=== PATIENT | male | born 1955 | race Caucasian/White ===

== ENCOUNTER 2016-11-22 10:28 | Inpatient (IN) | payer MEDICAID ==
[~2016-11-22] VITALS: Ht 162.6 cm; Wt 83.3 kg
[2016-11-22] VITALS (9 sets, daily range): BP systolic 132–162; BP diastolic 79–117
[2016-11-22] MEDS ORDERED: NITROGLYCERIN OINT 1GM/INCH UDPKT TD STA (11:23)
[2016-11-22] MEDS ORDERED: ASPIRIN 81MG TABLET PO STA (11:23)
[2016-11-22] MEDS ORDERED: ENALAPRIL 2.5MG/2ML VIAL 2ML IV ONE (11:30)
[2016-11-22] MEDS ORDERED: NITROGLYCERIN 0.4MG TABLET SL SL PRN (11:30)
[2016-11-22 11:39] LABS: BASOPHILS % 0.8 % (0.0-2.0); EOSINOPHILS % 1.4 % (0.0-5.0); HEMATOCRIT. 36.3 % (42.0-52.0); HEMOGLOBIN. 12.4 g/dL (14.0-18.0); LYMPHOCYTES % 23.7 % (20.0-50.0); MEAN CORPUSCULAR HEMOGLOBIN 30.6 pg (28.0-32.0); MEAN CORPUSCULAR VOLUME 89.4 fL (80.0-94.0); MEAN PLATELET VOLUME 8.4 fl (7.4-10.4); MONOCYTES % 11.2 % (2.0-8.0); NEUTROPHILS % 62.9 % (40.0-76.0); PLATELET 194 x1000/uL (130-400); RED BLOOD CELL COUNT 4.06 mill/uL (4.7-6.1); RED CELL DISTRIBUTION WIDTH 14.1 % (11.6-14.6)
[2016-11-22 11:46] LABS: INR 1.2; PARTIAL THROMBOPLASTIN TIME 30.2 sec (23.4-31.0)
[2016-11-22 11:54] LABS: CARBON DIOXIDE 24 mEq/L (21-32); CHLORIDE 110 mEq/L (98-107); CREATINE KINASE 227 IU/L (39-308); TROPONIN I 0.08 ng/mL (0.00-0.04)
[2016-11-22 11:55] LABS: CREATINE KINASE MB FRACTION 0.9 ng/mL (0.5-3.6)
[2016-11-22] MEDS ORDERED: FUROSEMIDE 20MG/2ML VIAL IVP ONE (12:00)
[2016-11-22] MEDS ORDERED: LEVOFLOXACIN 500MG PREMIX 100 ML IV ONE (12:00)
[2016-11-22] MEDS ORDERED: POTASSIUM CHLORIDE 20MEQ TABLET SR PO ONE (12:45)
[2016-11-22 13:21] LABS: CLARITY URINE CLEAR (CLEAR); COLOR URINE YELLOW (YELLOW); GLUCOSE URINE NEGATIVE (NEGATIVE); KETONES URINE NEGATIVE (NEGATIVE); LEUKOCYTE ESTERASE URINE NEGATIVE (NEGATIVE); NITRITE URINE NEGATIVE (NEGATIVE); OCCULT BLOOD URINE NEGATIVE (NEGATIVE); PH URINE 6.5 (4.5-8.0); PROTEIN URINE NEGATIVE (NEGATIVE); SPECIFIC GRAVITY URINE 1.011 (1.005-1.030)
[2016-11-22] MEDS ORDERED: DIPHENHYDRAMINE 50MG/ML VIAL IV PRN (15:30)
[2016-11-22] MEDS ORDERED: IPRATROPIUM/ALBUTEROL 0.5-3(2.5)MG/3ML NEB INH PRN (15:30)
[2016-11-22] MEDS ORDERED: CLONIDINE 0.1MG TABLET PO PRN (15:30)
[2016-11-22] MEDS ORDERED: MAGNESIUM/ALUMINUM HYDROXIDE/SIMETHICONE 30ML UDC PO PRN (15:30)
[2016-11-22] MEDS ORDERED: ONDANSETRON HCL 4MG/2ML VIAL IV PRN (15:30)
[2016-11-22] MEDS ORDERED: DEXTROSE 50% WATER 50ML SYRINGE IV PRN (15:30)
[2016-11-22] MEDS: AMLODIPINE 10MG TABLET PO SCH (15:42)
[2016-11-22] MEDS: BLOOD SUGAR DIAGNOSTIC STRIP TEST SCH ×2 (16:34→22:04)
[2016-11-22] MEDS: INSULIN LISPRO 100 UNITS/ML SUBCUT SCH ×2 (16:34→22:04)
[2016-11-22] MEDS ORDERED: GUAIFENESIN 200MG/10ML SUGAR FREE UDC PO PRN (20:00)
[2016-11-22] MEDS: BENAZEPRIL 20MG TABLET PO SCH (22:02)
[2016-11-22] MEDS: SODIUM CHLORIDE 0.9% INJ 3ML FLUSH IVF SCH (22:06)
[2016-11-23] VITALS (10 sets, daily range): BP systolic 103–152; BP diastolic 66–99
[2016-11-23] MEDS: ACETAMINOPHEN 325MG TABLET PO PRN ×4 (04:55→17:04)
[2016-11-23] MEDS: SODIUM CHLORIDE 0.9% INJ 3ML FLUSH IVF SCH ×3 (05:53→21:35)
[2016-11-23] MEDS: BLOOD SUGAR DIAGNOSTIC STRIP TEST SCH ×5 (05:54→21:36)
[2016-11-23 07:14] LABS: TROPONIN I 0.08 ng/mL (0.00-0.04)
[2016-11-23] MEDS: INSULIN LISPRO 100 UNITS/ML SUBCUT SCH ×4 (07:20→21:00)
[2016-11-23] MEDS ORDERED: MAGNESIUM 2 G PREMIX 50 ML IV PRN (08:00)
[2016-11-23] MEDS: AMLODIPINE 10MG TABLET PO SCH (08:39)
[2016-11-23] MEDS: BENAZEPRIL 20MG TABLET PO SCH ×2 (08:39→21:00)
[2016-11-23] MEDS: LEVOFLOXACIN 500MG PREMIX 100 ML IV SCH (13:34)
[2016-11-23] MEDS ORDERED: POTASSIUM CHLORIDE 20MEQ TABLET SR PO SCH ×2 (15:00)
[2016-11-23] MEDS ORDERED: REGADENOSON 0.4 MG/5 ML IV SCH (15:00)
[2016-11-23] MEDS: POTASSIUM CHLORIDE 20MEQ TABLET SR PO SCH (17:02)
[2016-11-23 17:12] LABS: *AMPHETAMINES SCREEN URINE NEGATIVE (NEGATIVE); *BARBITURATES SCREEN URINE NEGATIVE (NEGATIVE); *BENZODIAZEPINES SCREEN URINE NEGATIVE (NEGATIVE); *COCAINE SCREEN URINE NEGATIVE (NEGATIVE); CANNABINOID URINE SCREEN NEGATIVE (NEGATIVE); METHADONE URINE SCREEN NEGATIVE (NEGATIVE); OPIATES URINE SCREEN PRESUMTIVE POSITIVE (NEGATIVE); PHENCYCLIDINE URINE SCREEN NEGATIVE (NEGATIVE)
[2016-11-23] MEDS: IPRATROPIUM/ALBUTEROL 0.5-3(2.5)MG/3ML NEB HHN SCH (20:28)
[2016-11-23] MEDS: GUAIFENESIN 600MG ER TABLET PO SCH (21:31)
[2016-11-24] MEDS: POTASSIUM CHLORIDE 20MEQ TABLET SR PO SCH ×2 (00:04→05:24)
[2016-11-24 00:05] VITALS: BP 122/83
[2016-11-24] MEDS: IPRATROPIUM/ALBUTEROL 0.5-3(2.5)MG/3ML NEB HHN SCH ×4 (01:51→20:27)
[2016-11-24 04:00] VITALS: BP 139/79
[2016-11-24] MEDS: SODIUM CHLORIDE 0.9% INJ 3ML FLUSH IVF SCH ×3 (05:24→20:56)
[2016-11-24] MEDS: BLOOD SUGAR DIAGNOSTIC STRIP TEST SCH ×4 (06:20→20:56)
[2016-11-24 06:34] LABS: BASOPHILS % 0.5 % (0.0-2.0); EOSINOPHILS % 1.3 % (0.0-5.0); HEMOGLOBIN. 12.7 g/dL (14.0-18.0); LYMPHOCYTES % 25.5 % (20.0-50.0); MEAN CORPUSCULAR HEMOGLOBIN 30.8 pg (28.0-32.0); MEAN PLATELET VOLUME 8.9 fl (7.4-10.4); MONOCYTES % 10.4 % (2.0-8.0); NEUTROPHILS % 62.3 % (40.0-76.0); PLATELET 206 x1000/uL (130-400); RED BLOOD CELL COUNT 4.11 mill/uL (4.7-6.1); RED CELL DISTRIBUTION WIDTH 14.1 % (11.6-14.6)
[2016-11-24 06:49] LABS: CARBON DIOXIDE 21 mEq/L (21-32); CHLORIDE 108 mEq/L (98-107); CREATINE KINASE 184 IU/L (39-308); CREATINE KINASE MB FRACTION 0.9 ng/mL (0.5-3.6); HDL CHOLESTEROL 32 mg/dL (40-59); LDL CHOLESTEROL 129 mg/dL (5-100); TROPONIN I 0.07 ng/mL (0.00-0.04)
[2016-11-24] MEDS: INSULIN LISPRO 100 UNITS/ML SUBCUT SCH ×4 (07:50→20:56)
[2016-11-24 08:00] VITALS: BP 141/94
[2016-11-24] MEDS: BENAZEPRIL 20MG TABLET PO SCH ×2 (08:39→20:55)
[2016-11-24] MEDS: GUAIFENESIN 600MG ER TABLET PO SCH ×2 (08:40→20:55)
[2016-11-24] MEDS: ACETAMINOPHEN 325MG TABLET PO PRN ×2 (08:40→18:22)
[2016-11-24] MEDS: AMLODIPINE 10MG TABLET PO SCH (08:40)
[2016-11-24] MEDS ORDERED: REGADENOSON 0.4 MG/5 ML IV ONE (11:36)
[2016-11-24] MEDS ORDERED: IOHEXOL-350 100 ML BOTTLE ONE (12:01)
[2016-11-24] MEDS ORDERED: SODIUM CHLORIDE 0.9% 10ML VIAL ONE (12:01)
[2016-11-24] MEDS: LEVOFLOXACIN 500MG PREMIX 100 ML IV SCH (13:11)
[2016-11-24] MEDS ORDERED: POTASSIUM CHLORIDE 20MEQ TABLET SR PO NR (14:30)
[2016-11-24 20:51] VITALS: BP 146/99
[2016-11-25 00:15] VITALS: BP 142/95
[2016-11-25] MEDS: IPRATROPIUM/ALBUTEROL 0.5-3(2.5)MG/3ML NEB HHN SCH ×3 (02:50→13:31)
[2016-11-25 04:33] VITALS: BP 140/88
[2016-11-25] MEDS: SODIUM CHLORIDE 0.9% INJ 3ML FLUSH IVF SCH ×3 (05:12→21:31)
[2016-11-25 06:33] LABS: BASOPHILS % 0.8 % (0.0-2.0); EOSINOPHILS % 2.2 % (0.0-5.0); HEMATOCRIT. 37.2 % (42.0-52.0); HEMOGLOBIN. 12.8 g/dL (14.0-18.0); LYMPHOCYTES % 23.3 % (20.0-50.0); MEAN CORPUSCULAR HEMOGLOBIN 30.8 pg (28.0-32.0); MEAN CORPUSCULAR VOLUME 89.8 fL (80.0-94.0); MEAN PLATELET VOLUME 8.7 fl (7.4-10.4); MONOCYTES % 9.6 % (2.0-8.0); NEUTROPHILS % 64.1 % (40.0-76.0); PLATELET 213 x1000/uL (130-400); RED BLOOD CELL COUNT 4.15 mill/uL (4.7-6.1); RED CELL DISTRIBUTION WIDTH 14.6 % (11.6-14.6)
[2016-11-25 07:07] LABS: CHLORIDE 110 mEq/L (98-107)
[2016-11-25 07:18] LABS: CARBON DIOXIDE 21 mEq/L (21-32)
[2016-11-25] MEDS: BLOOD SUGAR DIAGNOSTIC STRIP TEST SCH ×4 (07:46→21:00)
[2016-11-25] MEDS: INSULIN LISPRO 100 UNITS/ML SUBCUT SCH ×5 (07:46→21:32)
[2016-11-25 07:52] VITALS: BP 131/90
[2016-11-25] MEDS: GUAIFENESIN 600MG ER TABLET PO SCH ×2 (09:39→21:31)
[2016-11-25] MEDS: BENAZEPRIL 20MG TABLET PO SCH ×2 (09:39→21:31)
[2016-11-25] MEDS: AMLODIPINE 10MG TABLET PO SCH (09:39)
[2016-11-25] MEDS ORDERED: POTASSIUM CHLORIDE 20MEQ TABLET SR PO NR (11:45)
[2016-11-25 12:09] VITALS: BP 134/85
[2016-11-25] MEDS: LEVOFLOXACIN 500MG PREMIX 100 ML IV SCH (12:39)
[2016-11-25 15:39] VITALS: BP 134/86
[2016-11-25] MEDS: FUROSEMIDE 40MG/4ML VIAL IVP SCH (16:43)
[2016-11-25] MEDS: POTASSIUM CHLORIDE 20MEQ TABLET SR PO SCH (16:43)
[2016-11-25] MEDS: LOSARTAN POTASSIUM 25 MG TABLET PO SCH (16:43)
[2016-11-25 20:44] VITALS: BP 144/88
[2016-11-25] MEDS: CARVEDILOL 6.25 MG TABLET PO SCH (21:31)
[2016-11-26 00:21] VITALS: BP 114/75
[2016-11-26 04:33] VITALS: BP 117/84
[2016-11-26] MEDS: SODIUM CHLORIDE 0.9% INJ 3ML FLUSH IVF SCH ×3 (06:00→21:24)
[2016-11-26] MEDS: BLOOD SUGAR DIAGNOSTIC STRIP TEST SCH ×4 (06:29→21:00)
[2016-11-26] MEDS: INSULIN LISPRO 100 UNITS/ML SUBCUT SCH ×4 (07:35→21:00)
[2016-11-26 07:36] VITALS: BP 135/85
[2016-11-26 08:13] LABS: EOSINOPHILS % 2.1 % (0.0-5.0); HEMATOCRIT. 40.6 % (42.0-52.0); HEMOGLOBIN. 13.8 g/dL (14.0-18.0); LYMPHOCYTES % 22.4 % (20.0-50.0); MEAN CORPUSCULAR HEMOGLOBIN 30.7 pg (28.0-32.0); MEAN CORPUSCULAR VOLUME 90.3 fL (80.0-94.0); MEAN PLATELET VOLUME 8.9 fl (7.4-10.4); MONOCYTES % 10.7 % (2.0-8.0); NEUTROPHILS % 63.8 % (40.0-76.0); PLATELET 232 x1000/uL (130-400); RED CELL DISTRIBUTION WIDTH 14.4 % (11.6-14.6)
[2016-11-26 08:33] LABS: CARBON DIOXIDE 25 mEq/L (21-32); CHLORIDE 109 mEq/L (98-107)
[2016-11-26] MEDS: ACETAMINOPHEN 325MG TABLET PO PRN ×2 (08:48→16:37)
[2016-11-26] MEDS: GUAIFENESIN 600MG ER TABLET PO SCH ×2 (08:48→21:24)
[2016-11-26] MEDS: POTASSIUM CHLORIDE 20MEQ TABLET SR PO SCH (08:48)
[2016-11-26] MEDS: CARVEDILOL 6.25 MG TABLET PO SCH ×2 (08:49→21:24)
[2016-11-26] MEDS: LOSARTAN POTASSIUM 25 MG TABLET PO SCH (08:49)
[2016-11-26] MEDS: FUROSEMIDE 40MG/4ML VIAL IVP SCH ×2 (08:50→18:20)
[2016-11-26] MEDS: AMLODIPINE 10MG TABLET PO SCH (08:50)
[2016-11-26] MEDS: BENAZEPRIL 20MG TABLET PO SCH ×2 (08:50→21:00)
[2016-11-26] MEDS: LEVOFLOXACIN 500MG TABLET PO SCH (11:48)
[2016-11-26 12:00] VITALS: BP 117/72
[2016-11-26 16:00] VITALS: BP 120/82
[2016-11-26 20:13] VITALS: BP 104/60
[2016-11-27] VITALS (8 sets, daily range): BP systolic 104–119; BP diastolic 69–79
[2016-11-27] MEDS: SODIUM CHLORIDE 0.9% INJ 3ML FLUSH IVF SCH ×3 (06:00→21:22)
[2016-11-27] MEDS: BLOOD SUGAR DIAGNOSTIC STRIP TEST SCH ×4 (06:29→20:51)
[2016-11-27 06:48] LABS: EOSINOPHILS % 2.9 % (0.0-5.0); HEMOGLOBIN. 13.9 g/dL (14.0-18.0); LYMPHOCYTES % 24.9 % (20.0-50.0); MEAN CORPUSCULAR HEMOGLOBIN 30.8 pg (28.0-32.0); MEAN CORPUSCULAR VOLUME 90.7 fL (80.0-94.0); MONOCYTES % 10.7 % (2.0-8.0); NEUTROPHILS % 60.5 % (40.0-76.0); PLATELET 231 x1000/uL (130-400); RED BLOOD CELL COUNT 4.52 mill/uL (4.7-6.1); RED CELL DISTRIBUTION WIDTH 14.1 % (11.6-14.6)
[2016-11-27] MEDS: INSULIN LISPRO 100 UNITS/ML SUBCUT SCH ×4 (07:50→21:00)
[2016-11-27] MEDS: POTASSIUM CHLORIDE 20MEQ TABLET SR PO SCH (08:54)
[2016-11-27] MEDS: GUAIFENESIN 600MG ER TABLET PO SCH ×2 (08:54→21:21)
[2016-11-27] MEDS: LOSARTAN POTASSIUM 25 MG TABLET PO SCH ×2 (08:55→09:00)
[2016-11-27] MEDS: FUROSEMIDE 40MG/4ML VIAL IVP SCH ×2 (08:55→17:20)
[2016-11-27] MEDS: BENAZEPRIL 20MG TABLET PO SCH ×2 (09:00→20:52)
[2016-11-27] MEDS: CARVEDILOL 6.25 MG TABLET PO SCH ×2 (09:00→21:21)
[2016-11-27] MEDS: AMLODIPINE 2.5MG TABLET PO SCH ×2 (10:30→21:22)
[2016-11-27] MEDS: LEVOFLOXACIN 500MG TABLET PO SCH (12:56)
[2016-11-27] MEDS: ACETAMINOPHEN 325MG TABLET PO PRN (21:22)
[2016-11-28] VITALS (7 sets, daily range): BP systolic 99–119; BP diastolic 53–75
[2016-11-28 06:36] LABS: BASOPHILS % 0.8 % (0.0-2.0); EOSINOPHILS % 2.8 % (0.0-5.0); HEMATOCRIT. 40.1 % (42.0-52.0); HEMOGLOBIN. 13.5 g/dL (14.0-18.0); LYMPHOCYTES % 28.4 % (20.0-50.0); MEAN CORPUSCULAR HEMOGLOBIN 30.7 pg (28.0-32.0); MEAN CORPUSCULAR VOLUME 91.3 fL (80.0-94.0); MEAN PLATELET VOLUME 9.3 fl (7.4-10.4); MONOCYTES % 10.2 % (2.0-8.0); NEUTROPHILS % 57.8 % (40.0-76.0); PLATELET 250 x1000/uL (130-400); RED BLOOD CELL COUNT 4.39 mill/uL (4.7-6.1); RED CELL DISTRIBUTION WIDTH 14.1 % (11.6-14.6)
[2016-11-28 07:34] LABS: CARBON DIOXIDE 26 mEq/L (21-32)
[2016-11-28 07:36] LABS: CHLORIDE 104 mEq/L (98-107)
[2016-11-28] MEDS: BLOOD SUGAR DIAGNOSTIC STRIP TEST SCH ×4 (07:36→21:48)
[2016-11-28] MEDS: INSULIN LISPRO 100 UNITS/ML SUBCUT SCH ×4 (07:37→21:00)
[2016-11-28] MEDS: SODIUM CHLORIDE 0.9% INJ 3ML FLUSH IVF SCH ×3 (08:11→22:08)
[2016-11-28] MEDS: ACETAMINOPHEN 325MG TABLET PO PRN ×4 (08:11→20:00)
[2016-11-28] MEDS: GUAIFENESIN 600MG ER TABLET PO SCH ×2 (08:12→22:02)
[2016-11-28] MEDS: POTASSIUM CHLORIDE 20MEQ TABLET SR PO SCH (08:12)
[2016-11-28] MEDS: LOSARTAN POTASSIUM 25 MG TABLET PO SCH (08:12)
[2016-11-28] MEDS: FUROSEMIDE 40MG/4ML VIAL IVP SCH (08:12)
[2016-11-28] MEDS: AMLODIPINE 2.5MG TABLET PO SCH ×2 (08:12→21:00)
[2016-11-28] MEDS: BENAZEPRIL 20MG TABLET PO SCH ×2 (08:13→21:00)
[2016-11-28] MEDS: CARVEDILOL 6.25 MG TABLET PO SCH (08:13)
[2016-11-28] MEDS: LEVOFLOXACIN 500MG TABLET PO SCH (11:35)
[2016-11-28] MEDS: ASPIRIN 81MG EC TABLET PO SCH (13:29)
[2016-11-28] MEDS: FUROSEMIDE 100MG/10ML VIAL IV SCH (16:33)
[2016-11-28] MEDS ORDERED: SILDENAFIL CITRATE 20MG TABLET PO SCH (22:00)
[2016-11-28] MEDS: CARVEDILOL 3.125 MG TABLET PO SCH (22:01)
[2016-11-29] VITALS (10 sets, daily range): BP systolic 102–115; BP diastolic 59–78
[2016-11-29 06:45] LABS: EOSINOPHILS % 2.7 % (0.0-5.0); HEMATOCRIT. 42.6 % (42.0-52.0); HEMOGLOBIN. 14.2 g/dL (14.0-18.0); LYMPHOCYTES % 31.7 % (20.0-50.0); MEAN CORPUSCULAR HEMOGLOBIN 30.5 pg (28.0-32.0); MEAN CORPUSCULAR VOLUME 91.7 fL (80.0-94.0); MEAN PLATELET VOLUME 9.1 fl (7.4-10.4); MONOCYTES % 10.3 % (2.0-8.0); NEUTROPHILS % 54.3 % (40.0-76.0); PLATELET 248 x1000/uL (130-400); RED BLOOD CELL COUNT 4.64 mill/uL (4.7-6.1); RED CELL DISTRIBUTION WIDTH 14.1 % (11.6-14.6)
[2016-11-29] MEDS: BLOOD SUGAR DIAGNOSTIC STRIP TEST SCH ×4 (06:49→21:51)
[2016-11-29] MEDS: SODIUM CHLORIDE 0.9% INJ 3ML FLUSH IVF SCH ×3 (07:09→21:51)
[2016-11-29] MEDS: INSULIN LISPRO 100 UNITS/ML SUBCUT SCH ×4 (07:50→21:00)
[2016-11-29 08:28] LABS: TROPONIN I 0.07 ng/mL (0.00-0.04)
[2016-11-29] MEDS: AMLODIPINE 2.5MG TABLET PO SCH ×2 (09:00→21:00)
[2016-11-29] MEDS: BENAZEPRIL 20MG TABLET PO SCH ×2 (09:00→21:00)
[2016-11-29] MEDS: POTASSIUM CHLORIDE 20MEQ TABLET SR PO SCH (09:00)
[2016-11-29] MEDS: ASPIRIN 81MG EC TABLET PO SCH (09:00)
[2016-11-29] MEDS: LOSARTAN POTASSIUM 25 MG TABLET PO SCH (09:00)
[2016-11-29] MEDS: CARVEDILOL 3.125 MG TABLET PO SCH ×2 (09:00→22:36)
[2016-11-29] MEDS: GUAIFENESIN 600MG ER TABLET PO SCH ×2 (09:23→09:24)
[2016-11-29] MEDS: FUROSEMIDE 100MG/10ML VIAL IV SCH ×2 (09:24→17:43)
[2016-11-29] MEDS ORDERED: IODIXANOL 320MG/ML 100 ML BOTTLE IV ONE (10:10)
[2016-11-29] MEDS ORDERED: LIDOCAINE HCL 1% 20ML VIAL (Pyxis) INJ ONE (10:10)
[2016-11-29] MEDS ORDERED: FENTANYL CITRATE/PF 50MCG/ML 2ML VIAL ONE (10:14)
[2016-11-29] MEDS ORDERED: MIDAZOLAM HCL 2 MG/2 ML VIAL ONE (10:14)
[2016-11-29] MEDS: LEVOFLOXACIN 500MG TABLET PO SCH (12:23)
[2016-11-29] MEDS: ACETAMINOPHEN 325MG TABLET PO PRN (22:40)
[2016-11-30] VITALS: BP 109/65
[2016-11-30 04:00] VITALS: BP 106/64
[2016-11-30] MEDS: SODIUM CHLORIDE 0.9% INJ 3ML FLUSH IVF SCH ×3 (05:47→21:07)
[2016-11-30] MEDS: BLOOD SUGAR DIAGNOSTIC STRIP TEST SCH ×4 (06:43→21:06)
[2016-11-30] MEDS: INSULIN LISPRO 100 UNITS/ML SUBCUT SCH ×4 (07:50→21:00)
[2016-11-30 08:00] VITALS: BP 127/79
[2016-11-30] MEDS: FUROSEMIDE 100MG/10ML VIAL IV SCH ×2 (08:09→17:13)
[2016-11-30] MEDS: LOSARTAN POTASSIUM 25 MG TABLET PO SCH (08:09)
[2016-11-30] MEDS: AMLODIPINE 2.5MG TABLET PO SCH ×2 (08:10→21:00)
[2016-11-30] MEDS: POTASSIUM CHLORIDE 20MEQ TABLET SR PO SCH (08:10)
[2016-11-30] MEDS: ASPIRIN 81MG EC TABLET PO SCH (08:10)
[2016-11-30] MEDS: CARVEDILOL 3.125 MG TABLET PO SCH ×2 (08:10→21:06)
[2016-11-30] MEDS: BENAZEPRIL 20MG TABLET PO SCH ×2 (08:11→21:00)
[2016-11-30] MEDS: GUAIFENESIN 600MG ER TABLET PO SCH ×2 (08:22→21:00)
[2016-11-30] MEDS: ACETAMINOPHEN 325MG TABLET PO PRN ×2 (08:34→17:16)
[2016-11-30] MEDS: LEVOFLOXACIN 500MG TABLET PO SCH (13:40)
[2016-11-30 16:00] VITALS: BP 99/56
[2016-11-30 20:00] VITALS: BP 108/67
[2016-12-01] VITALS: BP 105/67
[2016-12-01 04:00] VITALS: BP 103/56
[2016-12-01] MEDS: SODIUM CHLORIDE 0.9% INJ 3ML FLUSH IVF SCH ×3 (06:25→21:48)
[2016-12-01] MEDS: BLOOD SUGAR DIAGNOSTIC STRIP TEST SCH ×4 (06:26→21:48)
[2016-12-01 06:28] LABS: BASOPHILS % 0.8 % (0.0-2.0); EOSINOPHILS % 1.5 % (0.0-5.0); HEMATOCRIT. 42.5 % (42.0-52.0); HEMOGLOBIN. 14.4 g/dL (14.0-18.0); LYMPHOCYTES % 26.4 % (20.0-50.0); MEAN CORPUSCULAR HEMOGLOBIN 30.7 pg (28.0-32.0); MEAN CORPUSCULAR VOLUME 90.6 fL (80.0-94.0); MONOCYTES % 10.8 % (2.0-8.0); NEUTROPHILS % 60.5 % (40.0-76.0); PLATELET 243 x1000/uL (130-400); RED CELL DISTRIBUTION WIDTH 14.1 % (11.6-14.6)
[2016-12-01] MEDS: INSULIN LISPRO 100 UNITS/ML SUBCUT SCH ×4 (07:50→21:00)
[2016-12-01 08:00] VITALS: BP 105/56
[2016-12-01] MEDS: AMLODIPINE 2.5MG TABLET PO SCH ×2 (08:01→21:00)
[2016-12-01] MEDS: BENAZEPRIL 20MG TABLET PO SCH ×2 (08:01→21:00)
[2016-12-01] MEDS: LOSARTAN POTASSIUM 25 MG TABLET PO SCH (08:02)
[2016-12-01] MEDS: CARVEDILOL 3.125 MG TABLET PO SCH ×2 (08:02→21:47)
[2016-12-01] MEDS: ASPIRIN 81MG EC TABLET PO SCH (08:27)
[2016-12-01] MEDS: POTASSIUM CHLORIDE 20MEQ TABLET SR PO SCH ×2 (08:28→17:13)
[2016-12-01] MEDS: FUROSEMIDE 100MG/10ML VIAL IV SCH ×2 (08:28→17:12)
[2016-12-01] MEDS: GUAIFENESIN 600MG ER TABLET PO SCH ×2 (08:29→21:48)
[2016-12-01] MEDS ORDERED: POTASSIUM CHLORIDE 20MEQ TABLET SR PO NR (08:45)
[2016-12-01 12:00] VITALS: BP 106/72
[2016-12-01 16:24] VITALS: BP 103/65
[2016-12-01 20:00] VITALS: BP 99/61
[2016-12-02] VITALS: BP 111/72
[2016-12-02 04:00] VITALS: BP 121/74
[2016-12-02] MEDS: BLOOD SUGAR DIAGNOSTIC STRIP TEST SCH ×2 (06:59→12:29)
[2016-12-02] MEDS: SODIUM CHLORIDE 0.9% INJ 3ML FLUSH IVF SCH ×2 (06:59→13:26)
[2016-12-02 07:27] LABS: BASOPHILS % 0.7 % (0.0-2.0); EOSINOPHILS % 1.8 % (0.0-5.0); HEMATOCRIT. 43.4 % (42.0-52.0); HEMOGLOBIN. 14.8 g/dL (14.0-18.0); LYMPHOCYTES % 22.5 % (20.0-50.0); MEAN CORPUSCULAR VOLUME 90.6 fL (80.0-94.0); MEAN PLATELET VOLUME 8.9 fl (7.4-10.4); PLATELET 248 x1000/uL (130-400); RED BLOOD CELL COUNT 4.79 mill/uL (4.7-6.1); RED CELL DISTRIBUTION WIDTH 14.2 % (11.6-14.6)
[2016-12-02] MEDS: INSULIN LISPRO 100 UNITS/ML SUBCUT SCH ×2 (07:49→12:29)
[2016-12-02 07:54] VITALS: BP 103/73
[2016-12-02] MEDS: LOSARTAN POTASSIUM 25 MG TABLET PO SCH (08:00)
[2016-12-02] MEDS: BENAZEPRIL 20MG TABLET PO SCH (08:01)
[2016-12-02] MEDS: AMLODIPINE 2.5MG TABLET PO SCH (08:01)
[2016-12-02] MEDS: GUAIFENESIN 600MG ER TABLET PO SCH (08:01)
[2016-12-02] MEDS: ASPIRIN 81MG EC TABLET PO SCH (08:20)
[2016-12-02] MEDS: FUROSEMIDE 100MG/10ML VIAL IV SCH ×2 (08:20→16:27)
[2016-12-02] MEDS: CARVEDILOL 3.125 MG TABLET PO SCH (08:20)
[2016-12-02] MEDS: POTASSIUM CHLORIDE 20MEQ TABLET SR PO SCH ×2 (08:20→16:28)
[2016-12-02 12:05] VITALS: BP 103/73
[2016-12-02 15:07] VITALS: BP_SYST 105; BP_SYST 128; BP_DIAS 62; BP_DIAS 82
[2016-12-02 16:00] VITALS: BP 128/82
[2016-12-02] MEDS ORDERED: COR3 PO (16:54)
[2016-12-02] MEDS ORDERED: ENAL5TAB75 PO (16:54)
[2016-12-02] MEDS ORDERED: POTA10CA42 PO (16:54)
[2016-12-02] MEDS ORDERED: FURO-151 PO (16:54)
== END 2016-12-02 17:05 | disposition home or self-care (01) | DRG 191 ==
LOC: ER 10:28 → ENRESERV 11:53 → 3WST 12:00 → EDBEDREQ 12:03 → 6WST 11-23 09:15
PROVIDERS: ADMIT Internal Medicine; ATTEND Internal Medicine
PROC: 4A023N8 Measurement of Cardiac Sampling and Pressure, Bilateral, Percutaneous Approach (ICD-10-PCS; principal; 2016-11-29)
PROC: B2111ZZ Fluoroscopy of Multiple Coronary Arteries using Low Osmolar Contrast (ICD-10-PCS; 2016-11-29)
DX: I25.10 Atherosclerotic heart disease of native coronary artery without angina pectoris (principal); J96.00 Acute respiratory failure, unspecified whether with hypoxia or hypercapnia; I50.23 Acute on chronic systolic (congestive) heart failure; J18.9 Pneumonia, unspecified organism; I11.0 Hypertensive heart disease with heart failure; I27.2 Other secondary pulmonary hypertension; Z59.0 Homelessness; E11.65 Type 2 diabetes mellitus with hyperglycemia; J44.0 Chronic obstructive pulmonary disease with (acute) lower respiratory infection; E66.9 Obesity, unspecified; E87.6 Hypokalemia; D64.9 Anemia, unspecified; E78.00 Pure hypercholesterolemia, unspecified; Z60.2 Problems related to living alone; I25.5 Ischemic cardiomyopathy; Z79.899 Other long term (current) drug therapy; Z83.3 Family history of diabetes mellitus; I25.2 Old myocardial infarction; Z68.31 Body mass index [BMI] 31.0-31.9, adult
CPT/HCPCS: 36415; 71010; 71275; 78452; 80048; 80051; 80053; 80061; 80305; 81003; 82550; 82553; 82962; 83036; 83605; 83690; 83735; 83880; 84443; 84484; 85025; 85379; 85610; 85730; 87040; 93005; 93017; 93306; 93460; 93970; 94640; 94664; 96365; 96375; 99291; A4216; A9500; C1760; C1769; C1887; C1893; J1644; J1815; J1940; J1956; J2250; J2785; J3010; J3490; J7030; J7620; Q9967